=== PATIENT | female | born 1995 | race Caucasian/White ===

== ENCOUNTER 2016-12-19 16:07 | Emergency (ER) | payer OTHER ==
[~2016-12-19] VITALS: Ht 167.6 cm; Wt 92.2 kg
[~2016-12-19 16:07] MED LIST: BACTRIM DS1 TAB PO; ENBREL25 MG/0.5 SC; LORTAB5 PO; MILK OF MAG30 ML/UDC PO; PRENATAL1 TA1 PO; ZOFRAN4 MG/TAB PO
[2016-12-19 16:49] LABS: HEMATOCRIT 38.3 % (37.0-47.0); HEMOGLOBIN 13.1 g/dl (12.0-16.0); IMMATURE GRANULOCYTES 0.6 % (0.0-1.0); MEAN CELL VOLUME 87.6 fL CALC (80.0-100.0); MEAN CORPUSCULAR HGB CONC 34.2 g/L CALC (32.0-36.0); NEUT# 11.59 thou/uL (2.00-7.15); RED BLOOD COUNT 4.37 mill/uL (4.20-5.60); RED CELL DISTRI WIDTH 13.3 % (11.5-15.5)
[2016-12-19 16:54] LABS: URINE BILIRUBIN - DIPSTICK NEGATIVE (NEGATIVE); URINE BLOOD DIPSTICK NEGATIVE (NEGATIVE); URINE CLARITY SLIGHT CLOUDY; URINE COLOR YELLOW; URINE GLUCOSE - DIPSTICK NEGATIVE (NEGATIVE); URINE KETONE NEGATIVE (NEGATIVE); URINE LEUK ESTERASE TRACE (NEGATIVE); URINE NITRITE - DIPSTICK NEGATIVE (Negative); URINE PROTEIN - DIPSTICK NEGATIVE (NEG-TRACE); URINE UROBILINOGEN - DIPSTICK 0.2 E.U./dL (0.2)
[2016-12-19 17:03] LABS: ALBUMIN 3.6 g/dL (3.2-5.0); ALKALINE PHOSPHATASE 79 u/l (38-126); AMYLASE 56 u/l (30-110); ANION GAP 14 (6-22 (CALC)); BILIRUBIN, TOTAL 0.3 mg/dL (0.0-1.4); BUN 6 mg/dL (7-17); BUN/CREATININE RATIO 13 (12-20 (CALC)); CALCIUM 9.4 mg/dL (8.4-10.2); CARBON DIOXIDE 21 mmol/l (22-30); CHLORIDE 107 mmol/l (95-108); CREATININE 0.5 mg/dL (0.5-1.0); GFR > 60 ML/MIN (>=60 (CALC)); GFR FOR AFR.AMER. > 60 ML/MIN (>=60 (CALC)); GLUCOSE 71 mg/dL (65-105); LIPASE 24 u/l (23-300); POTASSIUM 3.9 mmol/l (3.5-5.1); SGOT/AST 12 u/l (14-36); SGPT/ALT 23 u/l (9-52); SODIUM 137 mmol/l (137-146); TOTAL PROTEIN 6.4 g/dL (6.3-8.2)
[2016-12-19 17:53] VITALS: BP 112/70
== END 2016-12-19 18:04 | disposition home or self-care (01) | DRG 781 ==
LOC: EDSTATUS 16:07 → ED 16:07
PROVIDERS: Emergency Medicine
DX: O99.612 Diseases of the digestive system complicating pregnancy, second trimester (principal); K52.9 Noninfective gastroenteritis and colitis, unspecified; Z3A.21 21 weeks gestation of pregnancy

== ENCOUNTER 2017-04-30 14:34 | Inpatient (IN) | payer OTHER ==
[~2017-04-30] VITALS: Ht 170.2 cm; Wt 105.2 kg
[2017-05-01] VITALS (13 sets, daily range): BP systolic 112–138; BP diastolic 46–91
--- NOTE | 2017-05-01 01:30 | NUR ---
PT ARRIVED ON UNIT FOR PREP OF SCHEDULED REPEAT IN AM. PT ADMITTED TO 203, ORIENTED TO AND CALL CABRAL, ADMISSION ASSESSMENT DONE, EFM X2 APPLIED- REACTIVE NST NOTED, IRREGULAR CTX NOTED- PT DENIES FEELING CTX OR PAIN, ABD PALPATED SOFT AND NON-RIGID, PT DENIES ANY VAGINAL BLEEDING OR LEAKING, IV SITE OBTAINED- IVF'S INFUSING ORDERED W/OUT DIFFICULTY, POC REVIEWED W/PT- PT VERBALIZES UNDERSTANDING, SIGNIFICANT OTHER AT BEDSIDE, PT AND S.O. DENY ANY CONCERNS OR NEEDS AT THIS TIME, BOTH ENCOURAGED TO CALL NURSE W/ANY QUESTIONS, CONCERNS, OR NEEDS- BOTH VERBALIZE UNDERSTANDING.
--- NOTE | 2017-05-01 06:45 | NUR ---
PT RESTING IN BED. PT WITH C/O NAUSEA. CONSTANZA CORDON AT THE BEDSIDE AND AWARE. PREOP MEDS GIVEN--SEE EMAR. EFM APPLIED. PT DENIES PAIN AND DENIES CTX. BEDSIDE REPORT GIVEN TO ARTURO LAZARO.
--- NOTE | 2017-05-01 06:50 | NUR ---
Report from prior shift on patient.
--- NOTE | 2017-05-01 07:20 | NUR ---
Patient to OR room ambulating with circulating OR nurse at this time.
--- NOTE | 2017-05-01 09:30 | NUR ---
Patient from PACU to Room 203. Patient moved to bed via stretcher with OR nurse and other nurse. Pericare provided. Patient
--- NOTE | 2017-05-01 09:58 | NUR ---
Cytotec 200mcg by mouth given as ordered.
--- NOTE | 2017-05-01 10:47 | NUR ---
Patient in room holding infant at present moment.
--- NOTE | 2017-05-01 12:02 | NUR ---
Benadryl 50mg iv given for itching.
--- NOTE | 2017-05-01 13:28 | NUR ---
Ancef 2 grams iv given as ordered.
--- NOTE | 2017-05-01 13:32 | NUR ---
Toradol 30mg iv given for pain level of 5 on scale of 1 to [address] Gracia notified of large shadowing on dressing to incision.
--- NOTE | 2017-05-01 13:50 | NUR ---
Pain level of 0 on scale of 1 to 10.
--- NOTE | 2017-05-01 14:30 | NUR ---
Patient in no distress holding infant. Denies pain at present.
--- NOTE | 2017-05-01 16:30 | NUR ---
Thomas discontinued. pericare done. Patient ambulating in room in no distress.
--- NOTE | 2017-05-01 18:15 | NUR ---
Patient voices no concern at present moment.
--- NOTE | 2017-05-01 18:50 | NUR ---
BEDSIDE REPORT RECEIVED FROM RAMÓN HOLGUIN RN ON PT STATUS. PT DENIES PAIN. UPSET BECAUSE SHE WANTS TO GO DOWNSTAIRS TO SMOKE. IS CRYING. FAMILY IS PRESSURING NURSE TO LET PT GO SMOKE. UPSET WITH DAY NURSERY NURSE BECAUSE SHE HAS NOT BATHED . REASSURANCE GIVEN THAT THIS NURSE WILL GIVEN A BATH. BED IN LOW POSITION AND CALL LIGHT WITHIN REACH. FAMILY AT BEDSIDE ALONG WITH PT'S 2 YR OLD SON.
--- NOTE | 2017-05-01 20:42 | NUR ---
DR. METZGER NOTIFIED OF PT'S REQUEST TO GO DOWNSTAIRS TO SMOKE. PHYSICIAN STATES PT CANNOT BUT SHE CAN HAVE A NICOTINE PATCH. INFORMED PT OF PHYSICIANS ORDERS. PT BECOMES INCREASINGLY UPSET WHEN TOLD ABOUT PATCH OR SIGNING OUT AMA. PT STATES TO TAKE OUT HER IV AND SHE IS REFUSING TO HAVE PHYSICAL ASSESSMENT OR VS TAKEN. IV TAKEN OUT WITHOUT DIFFICULTY.
--- NOTE | 2017-05-01 21:41 | NUR ---
PT REQUEST PAIN MEDICATION. MEDICATED WITH LORTAB 7.5MG PO. SEE E-MAR FOR DETAILS. FEEDING .
--- NOTE | 2017-05-01 23:40 | NUR ---
PT SLEEPING. NO SIGNS OF DISTRESS. SIGNIFICANT OTHER AT BEDSIDE.
--- NOTE | 2017-05-02 02:31 | NUR ---
PT AWAKE WATCHING BABY. NO COMPLAINTS. STATES PAIN MEDICATION HELPED.
--- NOTE | 2017-05-02 06:11 | NUR ---
PT REQUESTS TO TAKE SHOWER. SHOWER SET UP. ENCOURAGED TO REMOVE ABDOMINAL DRESSING AFTER IT IS SOAKED. PT VOICES UNDERSTANDING.
[2017-05-02 06:12] LABS: HEMATOCRIT 35.4 % (37.0-47.0); HEMOGLOBIN 11.6 g/dl (12.0-16.0); IMMATURE GRANULOCYTES 0.8 % (0.0-1.0); MEAN CELL VOLUME 86.8 fL CALC (80.0-100.0); MEAN CORPUSCULAR HGB 28.4 pG CALC (26.0-32.0); MEAN CORPUSCULAR HGB CONC 32.8 g/L CALC (32.0-36.0); NEUT# 6.73 thou/uL (2.00-7.15); RED BLOOD COUNT 4.08 mill/uL (4.20-5.60); RED CELL DISTRI WIDTH 14.2 % (11.5-15.5)
--- NOTE | 2017-05-02 07:00 | NUR ---
BEDSIDE REPORTING DONE WITH KAYODE MORRIS. PATIENT AWAKE IN BED HOLDING . INCENTIVE SPIROMETER INSTRUCTIONS AND RETURN DEMONSTRATION DONE. NO OTHER CONCERNS AT THIS TIME.
[2017-05-02 07:54] VITALS: BP 113/70
--- NOTE | 2017-05-02 07:59 | NUR ---
ASSESSMENT DONE CHARTED. NO CONCERNS. WANTS TO TAKE MOTRIN AND LORTAB TOGETHER WHEN SAME IS DUE. AMBULATES WITHOUT DIFFICULTY. NO OTHER CONCERNS VOICED. S/O AT BEDSIDE.
[2017-05-02] MEDS ORDERED: PRENATAL1 TA1 PO (09:48)
--- NOTE | 2017-05-02 11:02 | NUR ---
RESTING IN BED. NO CONCENRS AT THIS TIME.
--- NOTE | 2017-05-02 18:07 | NUR ---
IN ROOM WITH VISITOR AND . NO CONCERNS VOICED AT THIS TIME.
--- NOTE | 2017-05-02 19:00 | NUR ---
BEDSIDE SHIFT REPORT RECEIVED. PT STANDING IN ROOM WITH FAMILY MEMBERS. DENIES ANY NEEDS AT THIS TIME. BED IN LOW POSITION. POC GIVEN TO PT.
--- NOTE | 2017-05-02 19:02 | NUR ---
in room with visitors. bedside report given to karmen moulton.
[2017-05-02 20:15] VITALS: BP 131/88
--- NOTE | 2017-05-02 20:15 | NUR ---
ASSESSMENT AND VS STABLE CHARTED. DENIES PAIN. DENIES ANY NEEDS AT THIS TIME. BED IN LOW POSITON, CALL LIGHT IN REACH. PT UP AD ANGIE. DENIES ANY DIZZINESS OR WEAKNESS. WILL CONTINUE TO MONITOR.
--- NOTE | 2017-05-03 06:23 | NUR ---
PT AWAKE GATHERING BELONGINGS TOGETHER FOR LATER DISCHARGE, MOVING AROUND. STATES PAIN MUCH BETTER. BED IN LOW POSITION, CALL LIGHT IN REACH. AWAKE LAYING ON BED. REPORT PREPARED FOR ONCOMING SHIFT.
[2017-05-03 08:08] VITALS: BP 120/62
--- NOTE | 2017-05-03 08:11 | NUR ---
assessmnet done as charted. admits to incisional pain. will be medicated. discharge orders received.
[2017-05-03] MEDS ORDERED: IBUPROFEN600 MG PO (08:12)
[2017-05-03] MEDS ORDERED: LORTAB 7.57.5 MG PO (08:13)
--- NOTE | 2017-05-03 09:00 | NUR ---
Discharge instructions given. Patient verbalizes understanding of same. Discharged in stable condition via Wheelchair to Home with significant other. All belongings sent with pt. has prescriptions for lortab and motrin. will call for follow up appt.
== END 2017-05-03 09:00 | disposition home or self-care (01) | DRG 766 ==
LOC: OB 05-01 00:15
PROVIDERS: ADMIT Obstetrics & Gynecology; ATTEND Obstetrics & Gynecology
PROC: 10D00Z1 Extraction of Products of Conception, Low, Open Approach (ICD-10-PCS; principal; 2017-05-01)
DX: O34.211 Maternal care for low transverse scar from previous cesarean delivery (principal); N85.8 Other specified noninflammatory disorders of uterus; O99.214 Obesity complicating childbirth; E66.9 Obesity, unspecified; Z68.36 Body mass index [BMI] 36.0-36.9, adult; Z37.0 Single live birth; Z3A.39 39 weeks gestation of pregnancy
CPT/HCPCS: J2270

== ENCOUNTER 2017-05-26 20:00 | Emergency (ER) | payer OTHER ==
[~2017-05-26] VITALS: Ht 170.2 cm; Wt 91.0 kg
[~2017-05-26 20:00] MED LIST changes: +IBUPROFEN600 MG PO; +LORTAB 7.57.5 MG PO
[2017-05-26 20:33] LABS: URINE BILIRUBIN - DIPSTICK NEGATIVE (NEGATIVE); URINE BLOOD DIPSTICK LARGE (NEGATIVE); URINE COLOR YELLOW; URINE GLUCOSE - DIPSTICK NEGATIVE (NEGATIVE); URINE KETONE NEGATIVE (NEGATIVE); URINE NITRITE - DIPSTICK NEGATIVE (Negative); URINE PH 5.5 (4.5-8.0); URINE PROTEIN - DIPSTICK NEGATIVE (NEG-TRACE); URINE UROBILINOGEN - DIPSTICK 0.2 E.U./dL (0.2)
[2017-05-26 20:51] LABS: URINE CLARITY CLOUDY; URINE LEUK ESTERASE MODERATE (NEGATIVE)
[2017-05-26 20:55] LABS: URINE BACTERIA FEW hpf; URINE RBC TNTC RBC/hpf (0-5); URINE SQUAMOUS EPITHELIAL CELL FEW EPI/hpf (0-FEW); URINE WBC 20-50 WBC/hpf (0-5)
[2017-05-26] MEDS ORDERED: CIPROFLOXACN500 MG PO (21:04)
[2017-05-26 21:32] VITALS: BP 128/87
== END 2017-05-26 21:32 | disposition home or self-care (01) | DRG 776 ==
LOC: ED 20:00
PROVIDERS: Emergency Medicine
DX: O90.89 Other complications of the puerperium, not elsewhere classified (principal); R10.30 Lower abdominal pain, unspecified; O86.20 Urinary tract infection following delivery, unspecified; O99.335 Smoking (tobacco) complicating the puerperium; F17.210 Nicotine dependence, cigarettes, uncomplicated

== ENCOUNTER 2018-06-27 17:28 | Emergency (ER) | payer OTHER ==
[~2018-06-27] VITALS: Ht 170.2 cm; Wt 80.0 kg
[~2018-06-27 17:28] MED LIST changes: +CIPROFLOXACN500 MG PO
[2018-06-27 18:56] LABS: HEMATOCRIT 41.2 % (37.0-47.0); HEMOGLOBIN 13.9 g/dl (12.0-16.0); IMMATURE GRANULOCYTES 0.3 % (0.0-5.0); MEAN CELL VOLUME 86.9 fL CALC (80.0-100.0); MEAN CORPUSCULAR HGB 29.3 pG CALC (26.0-32.0); MEAN CORPUSCULAR HGB CONC 33.7 g/L CALC (32.0-36.0); NEUT# 10.73 thou/uL (2.00-7.15); RED BLOOD COUNT 4.74 mill/uL (4.20-5.60); RED CELL DISTRI WIDTH 12.5 % (11.5-15.5)
[2018-06-27 18:57] LABS: URINE BILIRUBIN - DIPSTICK NEGATIVE (NEGATIVE); URINE BLOOD DIPSTICK SMALL (NEGATIVE); URINE COLOR YELLOW; URINE GLUCOSE - DIPSTICK NEGATIVE (NEGATIVE); URINE KETONE TRACE mg/dL (NEGATIVE); URINE LEUK ESTERASE NEGATIVE (NEGATIVE); URINE NITRITE - DIPSTICK NEGATIVE (Negative); URINE PROTEIN - DIPSTICK NEGATIVE (NEG-TRACE); URINE SPECIFIC GRAVITY >=1.030; URINE UROBILINOGEN - DIPSTICK 0.2 E.U./dL (0.2)
[2018-06-27 18:59] LABS: URINE SQUAMOUS EPITHELIAL CELL FEW EPI/hpf (0-FEW); URINE WBC 0-2 WBC/hpf (0-5)
[2018-06-27 19:20] LABS: ANION GAP 14 (6-22 (CALC)); BILIRUBIN, TOTAL 0.4 mg/dL (0.0-1.4); BUN 8 mg/dL (7-17); BUN/CREATININE RATIO 15 (12-20 (CALC)); CARBON DIOXIDE 22 mmol/l (22-30); CHLORIDE 105 mmol/l (95-108); CREATININE 0.6 mg/dL (0.5-1.0); GFR > 60 ML/MIN (>=60 (CALC)); GFR FOR AFR.AMER. > 60 ML/MIN (>=60 (CALC)); POTASSIUM 3.5 mmol/l (3.5-5.1); SGOT/AST 13 u/l (14-36); SODIUM 137 mmol/l (137-146); TOTAL PROTEIN 6.6 g/dL (6.3-8.2)
[2018-06-27 19:25] LABS: ALBUMIN 3.8 g/dL (3.2-5.0)
[2018-06-27 19:26] LABS: ALKALINE PHOSPHATASE 71 u/l (38-126)
[2018-06-27 20:02] LABS: BETA-HCG, QUANT(RESULT NUMBER) 109430 mIU/mL
[2018-06-27 21:00] VITALS: BP 113/55
== END 2018-06-27 21:49 | disposition home or self-care (01) ==
LOC: ED 17:28
PROVIDERS: Emergency Medicine
DX: O20.0 Threatened abortion (principal); O99.331 Smoking (tobacco) complicating pregnancy, first trimester; F17.210 Nicotine dependence, cigarettes, uncomplicated; Z3A.09 9 weeks gestation of pregnancy

== ENCOUNTER 2019-10-13 | Emergency (ER) | payer OTHER ==
[2019-10-13 13:52] LABS: URINE BILIRUBIN - DIPSTICK NEGATIVE (NEGATIVE); URINE BLOOD DIPSTICK NEGATIVE (NEGATIVE); URINE COLOR YELLOW; URINE GLUCOSE - DIPSTICK NEGATIVE (NEGATIVE); URINE KETONE TRACE mg/dL (NEGATIVE); URINE LEUK ESTERASE TRACE (NEGATIVE); URINE NITRITE - DIPSTICK NEGATIVE (Negative); URINE PROTEIN - DIPSTICK NEGATIVE (NEG-TRACE); URINE SPECIFIC GRAVITY >=1.030; URINE UROBILINOGEN - DIPSTICK 0.2 E.U./dL (0.2)
[2019-10-13 13:53] LABS: HEMATOCRIT 42.7 % (37.0-47.0); HEMOGLOBIN 14.4 g/dl (12.0-16.0); IMMATURE GRANULOCYTES 0.4 % (0.0-5.0); MEAN CELL VOLUME 86.3 fL CALC (80.0-100.0); MEAN CORPUSCULAR HGB 29.1 pG CALC (26.0-32.0); MEAN CORPUSCULAR HGB CONC 33.7 g/dL CAL (32.0-36.0); NEUT# 7.65 thou/uL (2.00-7.15); RED BLOOD COUNT 4.95 mill/uL (4.20-5.60); RED CELL DISTRI WIDTH 12.6 % (11.5-15.5)
[2019-10-13 14:05] LABS: ALBUMIN 4.2 g/dL (3.2-5.0); ALKALINE PHOSPHATASE 96 u/l (38-126); ANION GAP 10 (6-22 (CALC)); BILIRUBIN, TOTAL 0.4 mg/dL (0.0-1.4); BUN 12 mg/dL (7-17); BUN/CREATININE RATIO 17 (12-20 (CALC)); CARBON DIOXIDE 22 mmol/l (22-30); CHLORIDE 107 mmol/l (95-108); CREATININE 0.7 mg/dL (0.5-1.0); GFR > 60 ML/MIN (>=60 (CALC)); GFR FOR AFR.AMER. > 60 ML/MIN (>=60 (CALC)); POTASSIUM 3.8 mmol/l (3.5-5.1); SGOT/AST 20 u/l (14-36); SODIUM 136 mmol/l (137-146); TOTAL PROTEIN 7.2 g/dL (6.3-8.2)
== END 2019-10-13 14:27 | disposition home or self-care (01) ==
DX: K62.5 Hemorrhage of anus and rectum (principal); K60.2 Anal fissure, unspecified; F17.200 Nicotine dependence, unspecified, uncomplicated

== ENCOUNTER 2020-03-13 06:13 | Emergency (ER) | payer OTHER ==
[~2020-03-13] VITALS: Ht 170.2 cm; Wt 86.0 kg
[2020-03-13] MEDS ORDERED: SINGULAIR10 MG PO (06:31)
[2020-03-13] MEDS ORDERED: LEVOCETIRIZINE D5 MG PO (06:32)
[2020-03-13 06:50] LABS: HEMATOCRIT 43.8 % (37.0-47.0); HEMOGLOBIN 14.4 g/dl (12.0-16.0); IMMATURE GRANULOCYTES 0.2 % (0.0-5.0); MEAN CELL VOLUME 87.4 fL CALC (80.0-100.0); MEAN CORPUSCULAR HGB 28.7 pG CALC (26.0-32.0); MEAN CORPUSCULAR HGB CONC 32.9 g/dL CAL (32.0-36.0); NEUT# 4.93 thou/uL (2.00-7.15); RED BLOOD COUNT 5.01 mill/uL (4.20-5.60); RED CELL DISTRI WIDTH 12.4 % (11.5-15.5)
[2020-03-13 06:52] LABS: URINE BLOOD DIPSTICK LARGE (NEGATIVE); URINE COLOR YELLOW; URINE GLUCOSE - DIPSTICK NEGATIVE (NEGATIVE); URINE KETONE NEGATIVE (NEGATIVE); URINE LEUK ESTERASE NEGATIVE (NEGATIVE); URINE NITRITE - DIPSTICK NEGATIVE (Negative); URINE PROTEIN - DIPSTICK TRACE mg/dL (NEG-TRACE); URINE SPECIFIC GRAVITY >=1.030; URINE UROBILINOGEN - DIPSTICK 0.2 E.U./dL (0.2)
[2020-03-13 07:05] LABS: URINE BACTERIA MANY hpf; URINE BILIRUBIN - DIPSTICK NEGATIVE (NEGATIVE); URINE RBC 50-100 RBC/hpf (0-5); URINE SQUAMOUS EPITHELIAL CELL FEW EPI/hpf (0-FEW)
[2020-03-13 07:15] LABS: ALBUMIN 4.6 g/dL (3.2-5.0); ALKALINE PHOSPHATASE 109 u/l (38-126); AMYLASE 53 u/l (30-110); ANION GAP 13 (6-22 (CALC)); BUN 9 mg/dL (7-17); BUN/CREATININE RATIO 13 (12-20 (CALC)); CARBON DIOXIDE 21 mmol/l (22-30); CHLORIDE 108 mmol/l (95-108); CREATININE 0.7 mg/dL (0.5-1.0); GFR > 60 ML/MIN (>=60 (CALC)); GFR FOR AFR.AMER. > 60 ML/MIN (>=60 (CALC)); LIPASE 34 u/l (23-300); POTASSIUM 3.9 mmol/l (3.5-5.1); SGOT/AST 19 u/l (14-36); SODIUM 139 mmol/l (137-146); TOTAL PROTEIN 7.4 g/dL (6.3-8.2)
[2020-03-13] MEDS ORDERED: PERCOCET 5/325M1 TAB PO (08:53)
[2020-03-13] MEDS ORDERED: ZOFRAN4 MG/TAB PO (08:53)
[2020-03-13] MEDS ORDERED: BACTRIM DS1 TAB PO (08:53)
[2020-03-13] MEDS ORDERED: TAMSULOSIN0.4 MG PO (08:53)
[2020-03-13 09:40] VITALS: BP 121/73
== END 2020-03-13 09:47 | disposition home or self-care (01) ==
LOC: ED 06:13
PROVIDERS: Family Medicine
DX: N13.30 Unspecified hydronephrosis (principal); F17.200 Nicotine dependence, unspecified, uncomplicated

== ENCOUNTER 2020-07-11 12:57 | Emergency (ER) | payer OTHER ==
[~2020-07-11 12:57] MED LIST changes: +LEVOCETIRIZINE D5 MG PO; +PERCOCET 5/325M1 TAB PO; +SINGULAIR10 MG PO; +TAMSULOSIN0.4 MG PO
== END 2020-07-11 14:36 | disposition left against medical advice (07) | DRG 951 ==
LOC: ED 12:57 → LWOBS 14:36
DX: Z53.21 Procedure and treatment not carried out due to patient leaving prior to being seen by health care provider (principal)